=== PATIENT | female | born 1945 | race Asian ===

== ENCOUNTER 2018-10-19 14:12 | Emergency (ER) | payer OTHER ==
[~2018-10-19] VITALS: Ht 165.1 cm; Wt 66.7 kg
[2018-10-19 14:28] VITALS: Ht 165.1 cm; Wt 66.7 kg
[2018-10-19 15:19] LABS: BASOPHIL % 1.1 % (0-2); PLATELET COUNT 168 x10^3mcL (130-400); RED CELL DISTRIBUTION WIDTH 13.6 % (11.5-14.5)
[2018-10-19 15:31] LABS: CALCIUM 9.6 mg/dL (8.5-10.1); CARBON DIOXIDE 27.8 mmol/L (21-32); CHLORIDE SERUM 101 mmol/L (98-107); CREATININE SERUM 1.1 mg/dL (0.6-1.0); GLUCOSE SERUM 99 mg/dL (74-106); POTASSIUM SERUM 3.3 mmol/L (3.5-5.1); SODIUM SERUM 140 mmol/L (136-145)
[2018-10-19 15:36] LABS: ALBUMIN 4.1 g/dL (3.4-5.0); ALKALINE PHOSPHATASE 40 U/L (46-116); ALT/SGPT 44 U/L (14-59); AST/SGOT 20 U/L (15-37); BILIRUBIN TOTAL 0.3 mg/dL (0.20-1.00); TOTAL PROTEIN, SERUM 7.6 g/dL (6.4-8.2)
[2018-10-19] MEDS ORDERED: METFORMIN HCL1000 MG PO (17:18)
[2018-10-19] MEDS ORDERED: [UNRECOGNIZED DRUG - OTHER] PO (17:19)
[2018-10-19] MEDS ORDERED: GLUCOTROL5 MG PO (17:19)
[2018-10-19] MEDS ORDERED: IRBESARTAN PO (17:19)
[2018-10-19] MEDS ORDERED: TAG300 PO (17:20)
[2018-10-19] MEDS ORDERED: GLYXAMBI1 TAB PO (17:20)
[2018-10-19] MEDS ORDERED: NOR5 PO (17:21)
[2018-10-19] MEDS ORDERED: MASON NATURAL1000 IU PO (17:21)
[2018-10-19] MEDS ORDERED: LOVASTATIN20 MG PO (17:21)
[2018-10-19] MEDS ORDERED: BAYER ASPIRIN R81 MG PO (17:21)
[2018-10-19] MEDS ORDERED: VITAMIN B-100 N1 TAB PO (17:22)
[2018-10-19 23:01] VITALS: BP 131/66
== END 2018-10-19 23:01 | disposition short-term general hospital (02) ==
LOC: ED 14:12
PROVIDERS: Emergency Medicine
DX: I63.9 Cerebral infarction, unspecified (principal); I10 Essential (primary) hypertension; E11.9 Type 2 diabetes mellitus without complications; Z88.5 Allergy status to narcotic agent
CPT/HCPCS: 36415; 82962; Q0092; Q9967